=== PATIENT | male | born 1950 | race Caucasian/White ===

== ENCOUNTER 2017-05-12 13:05 | Emergency (ER) | payer BC, MEDICARE ==
[~2017-05-12] VITALS: Ht 170.2 cm; Wt 87.0 kg
[2017-05-12 13:06] VITALS: BP 176/124
[2017-05-12] MEDS ORDERED: CIPROFLOXACIN 500 MG TABLET PO ONE (14:30)
[2017-05-12] MEDS ORDERED: CIPROFLOXACIN 500 MG TABLET ONE (14:44)
== END 2017-05-12 15:47 | disposition home or self-care (01) ==
LOC: ED 14:43
DX: Z00.8 Encounter for other general examination (principal); I10 Essential (primary) hypertension; E11.9 Type 2 diabetes mellitus without complications; E78.5 Hyperlipidemia, unspecified
CPT/HCPCS: 99282